=== PATIENT | female | born 1970 | race Caucasian/White ===

== ENCOUNTER 2020-05-23 10:07 | Emergency (ER) | payer OTHER ==
[~2020-05-23] VITALS: Ht 165.1 cm; Wt 106.1 kg
[~2020-05-23 10:07] MED LIST: AMOXIL500 MG PO; BENADRYL50 MG PO; DARVOCET N 1001 TAB PO; FLEXERIL10 MG PO; HYDROCODONE BIT1 T11 PO; IBUPROFEN100 M1 PO; LOMOTIL 0.025 M1 TAB PO; MOTRIN800 MG PO; NKHM; VICODIN 5/500 505 MG PO; Zofran4 MG PO
[2020-05-23 12:57] VITALS: BP 137/76
== END 2020-05-23 13:00 | disposition home or self-care (01) ==
LOC: ED 10:07
DX: S61.207A Unspecified open wound of left little finger without damage to nail, initial encounter (principal); W22.8XXA Striking against or struck by other objects, initial encounter; Y93.89 Activity, other specified; Y92.238 Other place in hospital as the place of occurrence of the external cause; Y99.0 Civilian activity done for income or pay

== ENCOUNTER 2025-02-07 08:27 | Emergency (ER) | payer BC ==
[~2025-02-07] VITALS: Ht 162.5 cm; Wt 93.0 kg
[2025-02-07 08:49] VITALS: BP 156/74
[2025-02-07 09:18] LABS: BASO % 0.3 % (0.0-1.0); EOS # 0.1 10*3/uL (0.0-0.4); EOS % 0.7 % (1.0-4.0); HEMATOCRIT 40.7 % (37.0-47.0); MEAN CELL VOLUME 90.6 fl (81.0-99.0); MEAN CORPUSCULAR HGB 29.2 pg (27.0-31.0); MEAN CORPUSCULAR HGB CONC 32.2 g/dl (33.0-37.0); MEAN PLATELET VOLUME 11.8 fl (9.6-12.3); MONO # 0.3 10*3/uL (0.1-1.0); MONO % 4.1 % (3.0-9.0); NEUT # 4.1 10*3/uL (2.3-7.9); NEUT % 59.8 % (47.0-73.0); PLATELET COUNT AUTOMATED 193 10*3/uL (130-400); RED BLOOD COUNT 4.49 10*6/uL (4.10-5.10); RED CELL DISTRI WIDTH 13.4 % (0-14.5); WHITE BLOOD COUNT 6.8 10*3/uL (4.8-10.8)
[2025-02-07 09:40] LABS: BUN 8 mg/dl (9-23); CHLORIDE 106 mmol/L (98-107); POTASSIUM 3.8 mmol/L (3.4-5.1)
[2025-02-07] MEDS ORDERED: DECADRON4 MG PO (10:13)
== END 2025-02-07 10:16 | disposition home or self-care (01) ==
LOC: ED 08:27
PROVIDERS: Internal Medicine
DX: B34.9 Viral infection, unspecified (principal); Z20.822 Contact with and (suspected) exposure to COVID-19; M54.2 Cervicalgia